=== PATIENT | male | born 1975 | race African-American/Black ===

== ENCOUNTER 2016-10-25 06:51 | Emergency (ER) | payer OTHER, MEDICAID ==
[~2016-10-25] VITALS: Ht 175.3 cm; Wt 120.0 kg
[2016-10-25] MEDS ORDERED: NAPROSYN500 MG PO (09:07)
[2016-10-25 09:35] VITALS: BP 160/73
== END 2016-10-25 09:49 | disposition home or self-care (01) | DRG 552 ==
LOC: ED 06:51
DX: S16.1XXA Strain of muscle, fascia and tendon at neck level, initial encounter (principal); S33.5XXA Sprain of ligaments of lumbar spine, initial encounter; V53.6XXA Passenger in pick-up truck or van injured in collision with car, pick-up truck or van in traffic accident, initial encounter; Y92.414 Local residential or business street as the place of occurrence of the external cause